=== PATIENT | female | born 2005 | race Two or more races ===

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

== ENCOUNTER → 2023-04-01 | Outpatient (CLI) | payer BC, MEDICAID | END | disposition home or self-care (01) | LOC: LAB 15:23 | PROVIDERS: ATTEND Nurse Practitioner Family | DX: L02.31 Cutaneous abscess of buttock (principal); Z51.89 Encounter for other specified aftercare | CPT/HCPCS: 87205 ==

== ENCOUNTER → 2024-07-09 | Outpatient (CLI) | payer BC ==
[2024-07-09 11:18] LABS: Basophils # (auto) 0 10 ^3/uL (0-0.2); Basophils % (auto) 0.3 % (0.0-2.0); Eosinophils # (auto) 0.1 10 ^3/uL (0-0.8); Eosinophils % (auto) 1.9 % (0.0-7.0); Hematocrit 42.6 % (36.0-46.0); Hemoglobin 14.4 g/dL (12.2-16.2); Lymphocytes % (auto) 18.6 % (10.0-50.0); Mean Corpuscular Hemoglobin 30.2 pg (28.0-32.0); Mean Corpuscular Hgb Conc. 33.9 g/dL (32.0-36.0); Mean Corpuscular Volume 89.3 fL (80.0-100.0); Monocytes # (auto) 0.3 10 ^3/uL (0-1.3); Monocytes % (auto) 4.9 % (0.0-12.0); Neutrophils % (auto) 74.3 % (37.0-80.0); Platelet Count (auto) 250 10^3/uL (140-450); Red Blood Cells 4.77 10^6/uL (4.0-5.20); Red Cell Distribution Width 12.9 % (11.8-14.3); White Blood Cell 5.4 10^3/uL (4.4-10.8)
[2024-07-09 11:48] LABS: Albumin 4.8 g/dL (3.2-4.8); Alkaline Phosphatase 81 U/L (46-116); Anion Gap 7 (5-15); Aspartate Aminotransferase 13 U/L (13-40); BUN/Creatinine Ratio 11.5 (10.0-20.0); Bilirubin, Total 0.7 mg/dL (0.2-1.0); Blood Urea Nitrogen 11 mg/dL (9-23); Calcium 9.6 mg/dL (8.7-10.4); Carbon Dioxide 23 mmol/L (20-31); Cholesterol 145 mg/dL (< 200); Glucose 96 mg/dL (74-106); LDL Cholesterol 90 mg/dL (< 100); Sodium 140 mmol/L (136-145); Total Protein 7.5 g/dL (5.7-8.2); Triglycerides 121 mg/dL (< 150)
[2024-07-09 11:50] LABS: Alanine Aminotransferase < 9 U/L (7-40); Chloride 110 mmol/L (98-107); Follicle Stimulating Hormone 8.35 IU/L (SEE BELOW); HDL Cholesterol 40 mg/dL (40-59)
[2024-07-09 11:51] LABS: Prolactin 5.46 ng/mL (2.8-29.2)
[2024-07-09 11:52] LABS: Free T4 (Free Thyroxine) 1.12 ng/dL (0.89-1.76)
[2024-07-09 12:23] LABS: Hepatitis B Core Total AB Negative (Negative)
[2024-07-09 12:26] LABS: Hepatitis B Surface Antibody Negative (Negative); Hepatitis B Surface Antigen Negative (Negative); Hepatitis C Antibody Negative (Negative)
[2024-07-09 12:31] LABS: Hepatitis A Total Antibody Positive (Negative)
[2024-07-10 07:07] LABS: RPR Non Reactive (Non Reactive)
== END | disposition home or self-care (01) ==
LOC: LAB 10:43
PROVIDERS: ATTEND Nurse Practitioner Family
DX: Z11.3 Encounter for screening for infections with a predominantly sexual mode of transmission (principal); E78.1 Pure hyperglyceridemia; E03.9 Hypothyroidism, unspecified; H47.10 Unspecified papilledema; Z00.01 Encounter for general adult medical examination with abnormal findings; Z78.9 Other specified health status
CPT/HCPCS: 36415; 80053; 80061; 82306; 82607; 82626; 82672; 83001; 83002; 83036; 84144; 84146; 84403; 84439; 84443; 85025; 86592; 86703; 86704; 86706; 86708; 86803; 87340